=== PATIENT | female | born 1950 | race Caucasian/White ===

== ENCOUNTER 2019-06-26 09:44 | Emergency (ER) | payer OTHER ==
[~2019-06-26] VITALS: Ht 154.9 cm; Wt 68.0 kg
[2019-06-26] MEDS ORDERED: XARELTO20 MG (10:25)
[2019-06-26] MEDS ORDERED: METFORMIN HCL500 MG (10:25)
[2019-06-26] MEDS ORDERED: LOSARTAN POTASS25 MG (10:26)
[2019-06-26] MEDS ORDERED: DILTIAZEM ER240 MG (10:26)
[2019-06-26] MEDS ORDERED: ATENOLOL25 GM (10:26)
== END 2019-06-26 14:00 | disposition home or self-care (01) ==
LOC: ER 09:44
DX: J45.998 Other asthma (principal)